=== PATIENT | male | born 1980 | race African-American/Black ===

== ENCOUNTER 2019-11-01 09:41 | Emergency (ER) | payer SELFPAY ==
[~2019-11-01] VITALS: Ht 175.3 cm; Wt 81.8 kg
[~2019-11-01 09:41] MED LIST: PREDNISONE20 MG PO; ZITHROMAX Z PA250 MG PO
[2019-11-01 09:46] VITALS: BP 111/67; PULSE 67; TEMP 98.6
== END 2019-11-01 10:45 | disposition home or self-care (01) ==
LOC: COL.ER 09:41
DX: R04.0 Epistaxis (principal); R51 Headache; Z79.52 Long term (current) use of systemic steroids

== ENCOUNTER 2021-09-18 23:53 | Emergency (ER) | payer MEDICAID ==
[~2021-09-18] VITALS: Ht 175.3 cm; Wt 86.0 kg
[2021-09-19 01:00] VITALS: TEMP 98.5
[2021-09-19] MEDS ORDERED: FLONASEALLERGY NS (01:26)
[2021-09-19] MEDS ORDERED: ZYRTEC 10MG10 MG PO (01:26)
[2021-09-19 01:50] VITALS: BP 124/81; PULSE 80
== END 2021-09-19 01:55 | disposition home or self-care (01) ==
LOC: COL.ER 23:53
DX: J30.9 Allergic rhinitis, unspecified (principal)